=== PATIENT | male | born 1940 | race Caucasian/White ===

== ENCOUNTER 2016-09-08 09:26 | Day surgery (SDC) | payer BC ==
--- NOTE | ~2016-09-08 | EGD ---
EGD REPORT [facility] [address] 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 Procedure: Pre-Anesthesia Assessment: - ASA Grade Assessment: III - A patient with severe systemic disease. After obtaining informed consent, the endoscope was passed under direct vision. Throughout the procedure, the patient's blood pressure, pulse, and oxygen saturations were monitored continuously. The PCF [id number] was introduced through the mouth and advanced to the small bowel distal to the Ligament of Treitz. The small bowel enteroscopy was accomplished without difficulty. The patient tolerated the procedure well. Findings: Neovascularization of the palate was noted. The patient had undergone fundoplication. The gastric and duodenal mucosa was unremarkable. A tattoo was seen in the proximal jejunum. The tattoo site appeared normal with one area \R\ 3 mm with prominent villi. Biopsies were taken with a cold forceps for histology. Impression: - A tattoo was seen in the jejunum. The tattoo site appeared normal. - Biopsies were taken with a cold forceps for histology. Recommendation: - Discharge patient to home. - Regular diet. - Continue present medications. - Await pathology results. Procedure Code(s): --- Professional --- 24337, Small intestinal endoscopy, enteroscopy beyond second portion of duodenum, not including ileum; with biopsy, single or multiple EGD REPORT [facility] [address] [address] NAME: JOSE FRANCISCO CANTU : [birth year] STATUS : REG [facility] PAT#: [id number] AGE: 76 ADM/REG DATE : 09/08/16 MR#: [id number] REPORT SERV DATE: 09/08/16 DICTATED BY: DATE: REPORT STATUS : Draft TRANSCRIBED BY: [employer] DATE: 09/08/16 Diagnosis Code(s): --- Professional --- D13.30, Benign neoplasm of unspecified part of small intestine CPT copyright 2013 [employer]. All rights reserved. The codes documented in this report are preliminary and upon laboratory development technician review may be revised to meet current compliance requirements. BERTRAND HOLLAND MD 09/08/2016 11:29 AM This report has been signed electronically. Number of Addenda: 0 Note Initiated On: 09/08/2016 10:53 AM Scope Withdrawal Time 0 hours 0 minutes 0 seconds [address] [id number]
[~2016-09-08 09:26] MED LIST: ACET500CAP PO; ALERTAB25 MG PO; ASAB PO; BEN25 PO; BENADRYL 50 MG50 MG PO; CALTRA600D PO; COZ50 PO; COZAAR100 MG PO; DURA12 TOP; FOLBIC; HYTRIN10 MG PO; LEVOTHYROXIN75 MCG PO; LORTAB 5 PO; MAG CITRATE PEG; MEDS; METANX PO; MEVACOR40 MG PO; MIRALAXPKT PO; MORPHINE 10 MG/5 ML PO/LIQ; MORPHINE PO/LIQ; NORV10 PO; NORV5 PO; PCET PO; PRILO PO; PRILOSEC OTC20 MG PO; RECLAST IV; T PO; TESTOSTERONE CREAM; VITAMIN D1000 UNI1 PO; VITAMIN D31000 UNIT PO; ZOFRAN4 PO; [UNRECOGNIZED DRUG - OTHER] TOP
== END 2016-09-08 23:59 | disposition home health service (06) ==
LOC: DMU 09:26
PROVIDERS: Internal Medicine Gastroenterology
PROC: 0DBA8ZX Excision of Jejunum, Via Natural or Artificial Opening Endoscopic, Diagnostic (ICD-10-PCS; principal; 2016-09-08 12:30)
DX: Z09 Encounter for follow-up examination after completed treatment for conditions other than malignant neoplasm (principal); I10 Essential (primary) hypertension; K21.9 Gastro-esophageal reflux disease without esophagitis; Z87.442 Personal history of urinary calculi; Z88.2 Allergy status to sulfonamides; E78.00 Pure hypercholesterolemia, unspecified; M19.90 Unspecified osteoarthritis, unspecified site; Z86.010 Personal history of colon polyps; Z90.49 Acquired absence of other specified parts of digestive tract; E03.9 Hypothyroidism, unspecified; Z98.890 Other specified postprocedural states
CPT/HCPCS: 88305